=== PATIENT | female | born 1960 | race Caucasian/White ===

== ENCOUNTER 2019-08-02 11:22 | Emergency (ER) | payer MEDICAID ==
[~2019-08-02] VITALS: Ht 165.1 cm; Wt 80.7 kg
[2019-08-02 11:25] VITALS: BP 158/103
--- NOTE | 2019-08-02 11:41 | NUR ---
58/F presents to ED with complaints of bilateral knee pain on going for the past few months, worsening in pain during the last week. Pt denies any injury or trauma. No swelling noted. No discoloration. Full ROM, sensation intact, CMS intact. Pt ambulatory with steady gait. No deformity noted.
[2019-08-02] MEDS ORDERED: ACETAMINOPHEN EXTRA STRENGTH 500 MG TAB PO ONE (12:05)
[2019-08-02] MEDS ORDERED: ONDANSETRON 4 MG ODT PO ONE (12:05)
[2019-08-02 13:38] VITALS: BP 156/94
--- NOTE | 2019-08-02 13:38 | NUR ---
Patient discharged with BP 156/94, DENIES NEADACHE OR DIZINESS AT THIS TIME, MD MADE AWARE. Written and verbal after care instructions given and explained. Patient alert, oriented and verbalized understanding of instructions. Ambulatory with steady gait. All questions addressed prior to discharge. ID band removed. Patient advised to follow up with PMD. Rx of HYDROCHLOROTIAZIDE, PEPCID, ATENOLOL, ZOFRAN 7 ACETAMINOPHEN given. Patient educated on indication of medication including possible reaction and side effects. Opportunity to ask questions provided and answered.
--- NOTE | 2019-08-02 13:38 | NUR ---
Note alfredo in EDM - 08/02/19 at 1340 by MED1 Patient discharged with v/s stable. Written and verbal after care instructions given and explained. Patient alert, oriented and verbalized understanding of instructions. Ambulatory with steady gait. All questions addressed prior to discharge. ID band removed. Patient advised to follow up with PMD. Rx of HYDROCHLOROTIAZIDE, PEPCID, ATENOLOL, ZOFRAN 7 ACETAMINOPHEN given. Patient educated on indication of medication including possible reaction and side effects. Opportunity to ask questions provided and answered.
== END 2019-08-02 13:38 | disposition home or self-care (01) ==
LOC: MED 11:22
DX: M25.561 Pain in right knee (principal); M25.562 Pain in left knee; I10 Essential (primary) hypertension; K29.70 Gastritis, unspecified, without bleeding; M54.9 Dorsalgia, unspecified; F17.210 Nicotine dependence, cigarettes, uncomplicated; Z98.890 Other specified postprocedural states; Z71.6 Tobacco abuse counseling
CPT/HCPCS: 73562; 99283; Q0162